=== PATIENT | male | born 1995 | race African-American/Black ===

== ENCOUNTER 2016-07-01 12:19 | Emergency (ER) | payer SELFPAY ==
[~2016-07-01] VITALS: Ht 180.3 cm; Wt 86.2 kg
[2016-07-01 12:27] VITALS: BP 138/68
--- NOTE | 2016-07-01 13:09 | RAD ---
Indication flulike symptoms. PA and lateral views of the chest were obtained. No prior imaging of the chest is available. The heart, pulmonary vessels and mediastinum appear normal. The lungs are clear. There is no pleural fluid or pneumothorax and the visualized bony structures appear grossly intact. IMPRESSION: Normal study
[2016-07-01 13:31] LABS: NEGATIVE OBC STREP NEG; POSITIVE OBC STREP POS
[2016-07-01 13:34] LABS: OBC FLU VALID
--- NOTE | 2016-07-01 13:52 | PHYS DOC ---
Past Medical History Past Medical History: No Pertinent History Past Surgical History: No Surgical History Alcohol Use: None Drug Use: None Adult General Chief Complaint Chief Complaint: FLU SYMPTOM HPI HPI Patient is a 20 year old male with no significant medical history who presents with subjective fevers, cough and running nose that began this morning. Patient states he called EMS who came to assess him and told him he is okay. Review of Systems Review of Systems Constitutional: fever Eyes: Denies change in visual acuity, redness, or eye pain [] HENT: nasal congestion Respiratory: cough Cardiovascular: No additional information not addressed in HPI [] GI: Denies abdominal pain, nausea, vomiting, bloody stools or diarrhea [] : Denies dysuria or hematuria [] Musculoskeletal: Denies back pain or joint pain [] Integument: Denies rash or skin lesions [] Neurologic: Denies headache, focal weakness or sensory changes [] Endocrine: Denies polyuria or polydipsia [] Allergies Allergies Allergies Coded Allergies Type Severity Reaction Last Updated Verified No Known Drug Allergies 06/22/15 No Physical Exam Physical Exam Constitutional: Well developed, well nourished, no acute distress, non-toxic appearance. [] HENT: Normocephalic, atraumatic, bilateral external ears normal, oropharynx moist, no oral exudates, nose normal. [] Eyes: PERRLA, EOMI, conjunctiva normal, no discharge. [] Neck: Normal range of motion, no tenderness, supple, no stridor. [] Cardiovascular:Heart rate regular rhythm, no murmur [] Lungs & Thorax: Bilateral breath sounds clear to auscultation [] Abdomen: Bowel sounds normal, soft, no tenderness, no masses, no pulsatile masses. [] Skin: Warm, dry, no erythema, no rash. [] Back: No tenderness, no CVA tenderness. [] Extremities: No tenderness, no cyanosis, no clubbing, ROM intact, no edema. [] Neurologic: Alert and oriented X 3, normal motor function, normal sensory function, no focal deficits noted. [] Psychologic: Affect normal, judgement normal, mood normal. [] Current Patient Data Vital Signs Vital Signs Date Time Temp Pulse Resp B/P (MAP) Pulse Ox O2 Delivery O2 Flow Rate FiO2 07/01/16 12:27 98.6 64 18 99 Room Air 98.6 Lab Values Laboratory Tests Test 07/01/16 12:35 07/01/16 12:45 Influenza Type A Antigen Negative (NEGATIVE) Influenza Type B Antigen Negative (NEGATIVE) Group A Streptococcus Rapid Negative (NEGATIVE) EKG EKG [] Radiology/Procedures Radiology/Procedures []PROCEDURE: CHEST PA & LATERAL Indication flulike symptoms. PA and lateral views of the chest were obtained. No prior imaging of the chest is available. The heart, pulmonary vessels and mediastinum appear normal. The lungs are clear. There is no pleural fluid or pneumothorax and the visualized bony structures appear grossly intact. IMPRESSION: Normal study DICTATED and SIGNED BY: JANET SEO MD DATE: 07/01/16 1306 CC: EBEN PINEDA APRN; NO PCP ~ Course & Med Decision Making Course & Med Decision Making Pertinent Labs and Imaging studies reviewed. (See chart for details) Patient is in the ED with symptoms of an upper respiratory infection. Negative rapid strep negative influenza A or B chest x-ray interpreted by radiologist as negative for any acute findings. Patient's symptoms are viral. Instructed to take Tylenol Motrin for pain or fever. Push fluids maintain good hand hygiene and rest. Follow-up with PCP in 1-2 weeks as needed. Dragon Disclaimer Dragon Disclaimer This electronic medical record was generated, in whole or in part, using a voice recognition dictation system. Departure Departure Impression: Primary Impression: Fever Additional Impressions: Upper respiratory infection Cough Disposition: 01 HOME, SELF-CARE Condition: STABLE Referrals: NO PCP (PCP) follow up with your doctor in one week Patient Instructions: Cough, Adult, Fever, Adult, Upper Respiratory Infection, Adult, [id number] Additional Instructions: You were seen for a viral illness. Follow up with your doctor in one week. Push fluids, rest. Take Tylenol or Motrin for fever. Problem Qualifiers Primary Impression: Fever Fever type: unspecified Qualified Codes: R50.9 - Fever, unspecified Additional Impressions: Upper respiratory infection URI type: unspecified URI Qualified Codes: J06.9 - Acute upper respiratory infection, unspecified EBEN PINEDA APRN July 01, 2016 13:52
== END 2016-07-01 13:55 | disposition home or self-care (01) ==
LOC: ER 12:19
DX: J06.9 Acute upper respiratory infection, unspecified (principal)
CPT/HCPCS: 71020; 87070; 87804; 87880; 99285-25